=== PATIENT | male | born 1965 | race Caucasian/White ===

== ENCOUNTER → 2016-09-20 | Outpatient (CLI) | payer BC ==
[2016-09-20 10:41] LABS: ALT 62 U/L (21-72); AST 38 U/L (17-59); Alkaline Phosphatase 54 U/L (38-126); Anion Gap 12 mmol/L; Blood Urea Nitrogen 25 mg/dL (9-20); Calcium 9.7 mg/dL (8.4-10.2); Carbon Dioxide 28 mmol/L (22-30); Chloride 102 mmol/L (98-107); Cholesterol 170 mg/dL (<200); Glucose 168 mg/dL (74-99); HDL Cholesterol 32 mg/dL (40-60); Non-African American GFR(MDRD) >60 (>60 ml/min/1.73 sqM); Potassium 4.7 mmol/L (3.5-5.1); Sodium 142 mmol/L (137-145); Total Bilirubin 0.7 mg/dL (0.2-1.3); Total Protein 7.6 g/dL (6.3-8.2); Triglycerides 385 mg/dL (<150)
[2016-09-20 11:30] LABS: Vitamin B12 610 pg/mL (239-931)
== END | disposition home or self-care (01) ==
LOC: LABWHC1 07:57
PROVIDERS: ATTEND Internal Medicine Endocrinology, Diabetes & Metabolism
DX: E11.65 Type 2 diabetes mellitus with hyperglycemia (principal)
CPT/HCPCS: 36415; 80053; 80061; 82043; 82607

== ENCOUNTER → 2017-01-23 | Outpatient (CLI) | payer BC ==
[2017-01-23 07:58] LABS: CH 31.1; CHCM 34.4; HDW 2.92; HGB 17.2 gm/dL (13.0-17.5); MCH 30.7 pg (25.0-35.0); MCHC 33.8 g/dL (31.0-37.0); MCV 90.8 fL (80.0-100.0); Mean Platelet Volume 6.3; RBC 5.62 m/uL (4.30-5.90); WBC 7.2 k/uL (3.8-10.6)
[2017-01-23 13:12] LABS: ALT 67 U/L (21-72); AST 38 U/L (17-59); Alkaline Phosphatase 56 U/L (38-126); Anion Gap 11 mmol/L; Blood Urea Nitrogen 23 mg/dL (9-20); Calcium 10.4 mg/dL (8.4-10.2); Carbon Dioxide 26 mmol/L (22-30); Chloride 105 mmol/L (98-107); Cholesterol 149 mg/dL (<200); Glucose 174 mg/dL (74-99); HDL Cholesterol 28 mg/dL (40-60); Non-African American GFR(MDRD) >60 (>60 ml/min/1.73 sqM); Potassium 5.1 mmol/L (3.5-5.1); Sodium 142 mmol/L (137-145); Total Bilirubin 0.6 mg/dL (0.2-1.3); Total Protein 7.4 g/dL (6.3-8.2); Triglycerides 215 mg/dL (<150)
[2017-01-23 13:36] LABS: Prostate Specific Antigen 1.12 ng/mL (0.00-4.00)
== END | disposition home or self-care (01) ==
LOC: LABWHC1 07:38
PROVIDERS: ATTEND Internal Medicine Endocrinology, Diabetes & Metabolism
DX: E11.65 Type 2 diabetes mellitus with hyperglycemia (principal); E29.1 Testicular hypofunction
CPT/HCPCS: 36415; 80053; 80061; 82043; 84153; 84403; 85027

== ENCOUNTER → 2017-05-09 | Outpatient (CLI) | payer BC ==
[2017-05-09 07:31] LABS: ALT 57 U/L (21-72); AST 37 U/L (17-59); Alkaline Phosphatase 52 U/L (38-126); Anion Gap 12 mmol/L; Blood Urea Nitrogen 26 mg/dL (9-20); Calcium 10.3 mg/dL (8.4-10.2); Carbon Dioxide 26 mmol/L (22-30); Chloride 102 mmol/L (98-107); Cholesterol 154 mg/dL (<200); Glucose 157 mg/dL (74-99); HDL Cholesterol 26 mg/dL (40-60); Non-African American GFR(MDRD) >60 (>60 ml/min/1.73 sqM); Potassium 4.7 mmol/L (3.5-5.1); Sodium 140 mmol/L (137-145); Total Bilirubin 0.6 mg/dL (0.2-1.3); Total Protein 7.3 g/dL (6.3-8.2)
[2017-05-09 15:59] LABS: Urine Creatinine 144.1 mg/dL
== END | disposition home or self-care (01) ==
LOC: LABWHC1 06:35
PROVIDERS: ATTEND Internal Medicine Endocrinology, Diabetes & Metabolism
DX: E11.65 Type 2 diabetes mellitus with hyperglycemia (principal)
CPT/HCPCS: 36415; 80053; 80061; 82043; 82570

== ENCOUNTER → 2017-09-06 | Outpatient (CLI) | payer BC ==
[2017-09-06 07:34] LABS: HCT 48.9 % (39.0-53.0); HGB 16.8 gm/dL (13.0-17.5); MCH 30.7 pg (25.0-35.0); MCHC 34.3 g/dL (31.0-37.0); MCV 89.4 fL (80.0-100.0); Mean Platelet Volume 6.9; Platelet Count 270 k/uL (150-450); RBC 5.47 m/uL (4.30-5.90); RDW 15.6 % (11.5-15.5); WBC 7.2 k/uL (3.8-10.6)
== END | disposition home or self-care (01) ==
LOC: LABWHC1 07:00
PROVIDERS: ATTEND Internal Medicine Endocrinology, Diabetes & Metabolism
DX: E29.1 Testicular hypofunction (principal)
CPT/HCPCS: 36415; 84403; 85027

== ENCOUNTER → 2018-01-19 | Outpatient (CLI) | payer BC ==
[2018-01-19 07:44] LABS: ALT 52 U/L (21-72); AST 35 U/L (17-59); Albumin 4.1 g/dL (3.5-5.0); Alkaline Phosphatase 52 U/L (38-126); Anion Gap 11 mmol/L; Blood Urea Nitrogen 23 mg/dL (9-20); Calcium 10.1 mg/dL (8.4-10.2); Carbon Dioxide 28 mmol/L (22-30); Chloride 101 mmol/L (98-107); Cholesterol 166 mg/dL (<200); Glucose 133 mg/dL (74-99); HDL Cholesterol 24 mg/dL (40-60); Potassium 4.8 mmol/L (3.5-5.1); Sodium 140 mmol/L (137-145); Total Bilirubin 0.4 mg/dL (0.2-1.3); Total Protein 6.9 g/dL (6.3-8.2); Triglycerides 455 mg/dL (<150)
[2018-01-19 15:28] LABS: Hemoglobin A1C 7.8 % (4.0-6.0)
== END | disposition home or self-care (01) ==
LOC: LABWHC1 06:40
PROVIDERS: ATTEND Internal Medicine Endocrinology, Diabetes & Metabolism
DX: E11.65 Type 2 diabetes mellitus with hyperglycemia (principal)
CPT/HCPCS: 36415; 80053; 80061; 82043; 82570; 82607; 83036

== ENCOUNTER → 2018-06-18 | Outpatient (CLI) | payer BC ==
[2018-06-18 11:27] LABS: ALT 57 U/L (10-49); AST 45 U/L (14-35); Alkaline Phosphatase 50 U/L (41-126); Carbon Dioxide 30.5 mmol/L (21.6-31.8); Chloride 101 mmol/L (96-109); Cholesterol 192 mg/dL (0-200); Globulin 2.3 g/dL (2.1-3.7); Glucose 168 mg/dL (70-110); Potassium 4.7 mmol/L (3.5-5.5); Sodium 139 mmol/L (135-145); Total Bilirubin 0.6 mg/dL (0.2-1.2); Total Protein 6.9 g/dL (6.2-8.2)
[2018-06-18 13:05] LABS: Hemoglobin A1C 8.6 % (4.0-6.0)
== END | disposition home or self-care (01) ==
LOC: LABWHC1 06:37
PROVIDERS: ATTEND Internal Medicine Endocrinology, Diabetes & Metabolism
DX: E11.65 Type 2 diabetes mellitus with hyperglycemia (principal)
CPT/HCPCS: 36415; 80053; 80061; 82043; 82570; 83036; 83721

== ENCOUNTER → 2018-08-26 | Outpatient (CLI) | payer BC ==
--- NOTE | 2018-08-26 18:10 | PN ---
PROGRESS NOTE DATE OF SERVICE: 08/26/2018 This patient is a 53-year-old gentleman who has been followed in the sleep center for treatment of obstructive sleep apnea-hypopnea syndrome. The patient successfully continues to use his CPAP equipment, using a nasal mask. He feels better while using his machine. [place] Sleepiness Scale today is 4, which is normal. I checked his CPAP unit. CPAP pressure is 9 cm of water. The patient has borderline compliance. Leak is 24 L/minute, which is acceptable. Apnea-hypopnea index reading is 0.9, which is absolutely normal. MEDICATIONS: 1. NovoLog. 2. Metformin. 3. Losartan. 4. Gemfibrozil. 5. Pravastatin. 6. Omeprazole. 7. Aspirin. 8. Glucosamine. 9. Vitamins. 10.Testosterone cream. PHYSICAL EXAMINATION: GENERAL: A pleasant patient in no distress. VITAL SIGNS: BP 138/86, HR 89, RR 16, height 6 feet, weight 212.2, body mass index 28.7. Patient's weight has increased by 5 pounds compared to his previous visit. Temperature 98.2, oxygen saturation at room air 96%. HEENT: PERRLA, EOMI. Evaluation of oropharynx showed tongue protrudes midline. Mallampati 3-4. NECK: Supple. No JVD. Thyroid is not palpable. LUNGS: Clear to percussion and to auscultation. Good air exchange. No wheezing or rhonchi. HEART: S1, S2 regular. No murmurs, gallops or rubs. ABDOMEN: Soft and nontender. Bowel sounds are present. No organomegaly. EXTREMITIES: No clubbing or cyanosis. AMMONIA DISTILLER: Awake, alert, and oriented X3. Cranial nerves 2 to 7 intact. There is no fasciculation or atrophy. noted. No focal deficits observed. IMPRESSION: 1. Severe obstructive sleep apnea-hypopnea syndrome, fully under control with CPAP at 9 cm of water. Patient benefitting from treatment. 2. Hypertension. 3. Diabetes mellitus. 4. Hyperlipidemia. 5. Acid reflux. 6. Low testosterone level. 7. History of acute leukemia, status post bone marrow transplant. 8. Status post right knee surgery. 9. Status post appendectomy. PLAN: 1. Patient will continue to use CPAP equipment every night for the whole night. Prescriptions for all necessary CPAP supplies including mask, tube, filters. 2. Watching and losing weight. 3. Sleep hygiene with regular time in bed for at least 8 hours. 4. No driving if feeling any sleepiness. 5. Follow-up visit in one year, or earlier if patient has any problems. Thank you very much for allowing me to participate in the management of your patient. Sincerely, Joni Hong MD, PhD, FAASM Diplomat of [place] [employer] [place] [employer] Clinical Education Manager of [facility] [place] MMODL / CRISTINAN: [id number] /
== END ==
LOC: SLEEP 16:39
PROVIDERS: ATTEND Internal Medicine
DX: G47.33 Obstructive sleep apnea (adult) (pediatric) (principal); I10 Essential (primary) hypertension; E11.9 Type 2 diabetes mellitus without complications; E78.5 Hyperlipidemia, unspecified; K21.9 Gastro-esophageal reflux disease without esophagitis; E29.1 Testicular hypofunction; C95.00 Acute leukemia of unspecified cell type not having achieved remission; Z90.89 Acquired absence of other organs; Z98.890 Other specified postprocedural states; Z94.81 Bone marrow transplant status; Z99.89 Dependence on other enabling machines and devices; Z79.84 Long term (current) use of oral hypoglycemic drugs; Z79.82 Long term (current) use of aspirin; Z79.899 Other long term (current) drug therapy

== ENCOUNTER → 2018-10-08 | Outpatient (CLI) | payer BC ==
[2018-10-08 07:08] LABS: HGB 16.6 gm/dL (13.0-17.5); MCH 31.5 pg (25.0-35.0); MCHC 33.1 g/dL (31.0-37.0); MCV 95.2 fL (80.0-100.0); Mean Platelet Volume 6.4; Platelet Count 269 k/uL (150-450); RBC 5.26 m/uL (4.30-5.90); RDW 14.9 % (11.5-15.5); WBC 6.4 k/uL (3.8-10.6)
[2018-10-08 12:06] LABS: Hemoglobin A1C 8.5 % (4.0-6.0)
[2018-10-08 13:16] LABS: ALT 64 U/L (10-49); AST 53 U/L (14-35); Albumin/Globulin Ratio 1.87 (1.60-3.17); Alkaline Phosphatase 51 U/L (41-126); Carbon Dioxide 25.6 mmol/L (21.6-31.8); Chloride 101 mmol/L (96-109); Cholesterol 172 mg/dL (0-200); Globulin 2.3 g/dL (1.6-3.3); Glucose 157 mg/dL (70-110); Potassium 4.6 mmol/L (3.5-5.5); Sodium 137 mmol/L (135-145); Total Bilirubin 0.5 mg/dL (0.2-1.2); Total Protein 6.6 g/dL (6.2-8.2)
== END | disposition home or self-care (01) ==
LOC: LABWHC1 06:33
PROVIDERS: ATTEND Internal Medicine Endocrinology, Diabetes & Metabolism
DX: E11.65 Type 2 diabetes mellitus with hyperglycemia (principal)
CPT/HCPCS: 36415; 80053; 80061; 82043; 82570; 83036; 83721; 84153; 84403; 84443; 85027

== ENCOUNTER → 2019-01-29 | Outpatient (CLI) | payer BC ==
[2019-01-29 07:39] LABS: HCT 52.3 % (39.0-53.0); MCH 30.4 pg (25.0-35.0); MCHC 32.5 g/dL (31.0-37.0); MCV 93.5 fL (80.0-100.0); Mean Platelet Volume 6.1; Platelet Count 292 k/uL (150-450); RBC 5.59 m/uL (4.30-5.90); RDW 15.1 % (11.5-15.5); WBC 7.2 k/uL (3.8-10.6)
[2019-01-29 11:02] LABS: African American GFR (CKD) 65.1 (60.0-200.0); Albumin 4.5 g/dL (3.80-4.90); Albumin/Globulin Ratio 2.05 (1.60-3.17); Anion Gap 6.5 mmol/L (4.00-12.00); BUN/Creat Ratio 15.71 Ratio (12.00-20.00); Calcium 10.3 mg/dL (8.7-10.3); Carbon Dioxide 27.5 mmol/L (21.6-31.8); Globulin 2.2 g/dL (1.6-3.3); Total Bilirubin 0.5 mg/dL (0.2-1.2); Total Protein 6.7 g/dL (6.2-8.2)
[2019-01-29 17:07] LABS: Hemoglobin A1C 8.8 % (4.0-6.0)
== END | disposition home or self-care (01) ==
LOC: LABWHC1 06:47
PROVIDERS: ATTEND Internal Medicine Endocrinology, Diabetes & Metabolism
DX: E11.65 Type 2 diabetes mellitus with hyperglycemia (principal); Z12.5 Encounter for screening for malignant neoplasm of prostate
CPT/HCPCS: 36415; 80053; 80061; 82043; 82570; 83036; 84153; 84403; 84443; 85027

== ENCOUNTER → 2019-09-20 | Outpatient (CLI) | payer BC ==
[2019-09-20 08:04] LABS: HCT 53.6 % (39.0-53.0); HGB 17.2 gm/dL (13.0-17.5); MCH 29.8 pg (25.0-35.0); Mean Platelet Volume 6.8; Platelet Count 303 k/uL (150-450); RBC 5.76 m/uL (4.30-5.90); RDW 14.4 % (11.5-15.5); WBC 8.3 k/uL (3.8-10.6)
[2019-09-20 12:13] LABS: Urine Creatinine 100.8 mg/dL
[2019-09-20 13:41] LABS: Hemoglobin A1C 8.5 % (4.0-6.0)
[2019-09-20 17:05] LABS: African American GFR (CKD) 64.6 (60.0-200.0); Albumin 4.6 g/dL (3.80-4.90); Albumin/Globulin Ratio 2.09 (1.60-3.17); Anion Gap 6.9 mmol/L (4.00-12.00); BUN/Creat Ratio 22.14 Ratio (12.00-20.00); Calcium 10.9 mg/dL (8.7-10.3); Carbon Dioxide 27.1 mmol/L (21.6-31.8); Chol/HDL Ratio 5.16; Globulin 2.2 g/dL (1.6-3.3); LDL Cholesterol,Calculated 65.6 mg/dL (0.0-131.0); Non-African American GFR(CKD) 55.8 (60.0-200.0); Potassium 5.2 mmol/L (3.5-5.5); Total Bilirubin 0.6 mg/dL (0.3-1.2); Total Protein 6.8 g/dL (6.2-8.2); VLDL Calculation 63.4 mg/dL (5.00-40.00)
== END | disposition home or self-care (01) ==
LOC: LABWHC1 07:03
PROVIDERS: ATTEND Internal Medicine Endocrinology, Diabetes & Metabolism
DX: E10.65 Type 1 diabetes mellitus with hyperglycemia (principal); E29.1 Testicular hypofunction
CPT/HCPCS: 36415; 80053; 80061; 82043; 82570; 83036; 84153; 84403; 84443; 85027

== ENCOUNTER → 2020-01-27 | Outpatient (CLI) | payer BC ==
[2020-01-27 08:09] LABS: MCH 31.7 pg (25.0-35.0); MCHC 33.4 g/dL (31.0-37.0); MCV 95.1 fL (80.0-100.0); Mean Platelet Volume 6.5; Platelet Count 306 k/uL (150-450); RBC 5.36 m/uL (4.30-5.90); RDW 14.4 % (11.5-15.5); WBC 7.3 k/uL (3.8-10.6)
[2020-01-27 16:43] LABS: African American GFR (CKD) 64.6 (60.0-200.0); Albumin 4.5 g/dL (3.80-4.90); Albumin/Globulin Ratio 1.88 (1.60-3.17); Anion Gap 7.5 mmol/L (4.00-12.00); BUN/Creat Ratio 19.29 Ratio (12.00-20.00); Calcium 10.3 mg/dL (8.7-10.3); Carbon Dioxide 27.5 mmol/L (21.6-31.8); Chol/HDL Ratio 5.34; Globulin 2.4 g/dL (1.6-3.3); Non-African American GFR(CKD) 55.8 (60.0-200.0); Potassium 4.8 mmol/L (3.5-5.5); Total Bilirubin 0.7 mg/dL (0.3-1.2); Total Protein 6.9 g/dL (6.2-8.2)
[2020-01-27 17:36] LABS: Hemoglobin A1C 7.8 % (4.0-6.0)
[2020-01-27 17:57] LABS: Urine Creatinine 96.5 mg/dL
== END | disposition home or self-care (01) ==
LOC: LABWHC1 07:07
PROVIDERS: ATTEND Internal Medicine Endocrinology, Diabetes & Metabolism
DX: E10.65 Type 1 diabetes mellitus with hyperglycemia (principal); E29.1 Testicular hypofunction
CPT/HCPCS: 36415; 80053; 80061; 82043; 82570; 83036; 84403; 84443; 85027

== ENCOUNTER → 2020-05-18 | Outpatient (CLI) | payer BC ==
--- NOTE | 2020-05-19 07:29 | SFUN ---
SLEEP CENTER FOLLOW UP NOTE DATE OF SERVICE: 05/18/2020 This 55-year-old gentleman who has been followed in Sleep Center for treatment of obstructive sleep apnea-hypopnea syndrome. The patient continued to use CPAP equipment, but unfortunately not every night. He explained that when he is using equipment he sleeps better and feels better on the following day. No problems with the machine. [place] Sleepiness Scale is 7. I checked his CPAP unit. CPAP pressure is 9 cm of water. For the last month, he used it 14 night with average usage 5.6 hours per night. Leak is slightly increased 26 L/minute, but apnea-hypopnea index is perfectly normal 1.0. MEDICATIONS: Aspirin 81 mg once daily, losartan 100 mg once daily, gemfibrozil 600 mg twice daily, metformin 500 mg 3 times daily, pravastatin 40 mg once daily, NovoLog, testosterone cream. PHYSICAL EXAMINATION: GENERAL: Patient in no distress. VITAL SIGNS: BP 107/71, HR 90, RR 15, height 6 feet 0 inches, weight 204.4, temperature 98.2, oxygen saturation at room air 97%. HEENT: PERRLA, EOMI. Oropharynx low position of soft palate, Mallampati 3-4. NECK: Supple, no JVD. Thyroid is not palpable. LUNGS: Clear to percussion and to auscultation. Good air exchange. No wheezing or rhonchi. HEART: S1, S2 regular. No murmurs, gallops, or rubs. ABDOMEN: Soft and nontender. Bowel sounds are present. No organomegaly appreciated. EXTREMITIES: No clubbing or cyanosis. DIRECTOR OF GUIDANCE IN PUBLIC [employer]CHOOLS: Awake, alert, and oriented X3. Cranial nerves 2 to 7 intact. There is no fasciculation or atrophy. noted. No focal deficits observed. IMPRESSION: 1. Severe obstructive sleep apnea-hypopnea syndrome, normal respiration on CPAP and benefitting from treatment. 2. Hypertension. 3. Diabetes mellitus. 4. Hyperlipidemia. 5. Acid reflux. 6. Low testosterone level. 7. History of acute leukemia, status post bone marrow transplant. 8. Status post right knee surgery. 9. Status post appendectomy. PLAN: 1. Patient will continue to use PAP equipment every night for the whole night. 2. Sleep hygiene with regular time in bed for at least 7-1/2 to 8 hours. 3. Precautions related to driving. No driving if feeling sleepiness. 4. I will maintain all necessary prescription for PAP supplies including mask, tube, filters. 5. Watching weight. 6. No driving if feeling sleepiness. 7. Follow-up visit in 6 months or earlier if patient has any problems. I again discussed with the patient in details necessity to use CPAP treatment every night for the whole night. I discussed the possibility of complications if he will not use CPAP therapy. Thank you very much for allowing me to participate in management of your patient. Sincerely, Joni Hong MD, PhD, FAASM Diplomat of [place] [employer] [place] [employer] Trailer Tank Truck Driver of [facility] [place] MMODL / IJN: [id number] /
== END | disposition home or self-care (01) ==
LOC: SLEEP 15:46
PROVIDERS: ATTEND Internal Medicine
DX: G47.33 Obstructive sleep apnea (adult) (pediatric) (principal); I10 Essential (primary) hypertension; E11.9 Type 2 diabetes mellitus without complications; E78.5 Hyperlipidemia, unspecified; K21.9 Gastro-esophageal reflux disease without esophagitis; R86.1 Abnormal level of hormones in specimens from male genital organs; Z85.6 Personal history of leukemia

== ENCOUNTER → 2020-06-22 | Outpatient (CLI) | payer BC ==
[2020-06-22 17:02] LABS: HCT 51.5 % (39.0-53.0); HGB 17.1 gm/dL (13.0-17.5); MCH 31.2 pg (25.0-35.0); MCHC 33.2 g/dL (31.0-37.0); Mean Platelet Volume 6.5; Platelet Count 272 k/uL (150-450); RBC 5.48 m/uL (4.30-5.90); RDW 14.9 % (11.5-15.5); WBC 9.2 k/uL (3.8-10.6)
[2020-06-23 01:30] LABS: Prostate Specific Antigen 1.8 ng/mL (0.0-3.5)
== END | disposition home or self-care (01) ==
LOC: LABWHC1 15:43
PROVIDERS: ATTEND Internal Medicine Endocrinology, Diabetes & Metabolism
DX: E29.1 Testicular hypofunction (principal)
CPT/HCPCS: 36415; 84153; 84403; 85027

== ENCOUNTER → 2020-09-15 | Outpatient (CLI) | payer BC ==
[2020-09-15 07:55] LABS: HGB 16.4 gm/dL (13.0-17.5); MCH 30.5 pg (25.0-35.0); MCHC 32.7 g/dL (31.0-37.0); MCV 93.2 fL (80.0-100.0); Mean Platelet Volume 6.4; Platelet Count 266 k/uL (150-450); RBC 5.37 m/uL (4.30-5.90); RDW 14.9 % (11.5-15.5)
[2020-09-15 11:26] LABS: African American GFR (CKD) 64.2 (60.0-200.0); Albumin 4.7 g/dL (3.80-4.90); Albumin/Globulin Ratio 2.04 (1.60-3.17); Anion Gap 9.9 mmol/L (4.00-12.00); BUN/Creat Ratio 20.71 Ratio (12.00-20.00); Calcium 10.3 mg/dL (8.7-10.3); Carbon Dioxide 27.1 mmol/L (21.6-31.8); Chol/HDL Ratio 5.03; Globulin 2.3 g/dL (1.6-3.3); Non-African American GFR(CKD) 55.4 (60.0-200.0); Potassium 4.9 mmol/L (3.5-5.5); Prostate Specific Antigen 0.9 ng/mL (0.0-3.5); Total Bilirubin 0.4 mg/dL (0.3-1.2)
[2020-09-15 11:40] LABS: Urine Creatinine 98.7 mg/dL
[2020-09-15 13:11] LABS: Hemoglobin A1C 8.8 % (4.0-6.0)
== END | disposition home or self-care (01) ==
LOC: LABWHC1 07:01
PROVIDERS: ATTEND Internal Medicine Endocrinology, Diabetes & Metabolism
DX: E11.65 Type 2 diabetes mellitus with hyperglycemia (principal); E29.1 Testicular hypofunction
CPT/HCPCS: 36415; 80053; 80061; 82043; 82570; 83036; 83721; 84153; 84403; 84443; 85027

== ENCOUNTER → 2020-12-07 | Outpatient (CLI) | payer BC ==
--- NOTE | 2020-12-07 23:16 | SFUN ---
SLEEP CENTER FOLLOW UP NOTE DATE OF SERVICE: 12/07/2020 This 55-year-old gentleman has been followed in Sleep Center for treatment of obstructive sleep apnea-hypopnea syndrome. Recently the patient developed problems with his machine. The machine become noisy. He checked with his [employer] company and they told him that possibly something was wrong with the motor, so the machine needs to be replaced. I checked the CPAP unit. The patient used it for 12/ nights for the last month, again because the machine is noisy. Usage average is 4.4 hours per night. Leak is 25 L/minute, which is borderline, but apnea-hypopnea index is totally normal at 1.4. CPAP pressure is 9 cm of water. The patient using a DreamWear [id number] medium-sized mask. [place] Sleepiness Scale today is 4. MEDICATIONS: 1. Aspirin 81 mg once a day. 2. Losartan 100 mg once a day. 3. Gemfibrozil 600 mg twice a day. 4. Metformin 500 mg 3 times a day. 5. Pravastatin 40 mg once a day. 6. Testosterone topical solution once a day. 7. Allopurinol 100 mg once a day. 8. Colchicine 0.6 mg as needed for gout once a day. 9. Insulin NovoLog for diabetes. 10.Some supplements, including multivitamins, fiber capsules. PHYSICAL EXAMINATION: GENERAL: A pleasant patient in no distress. VITAL SIGNS: BP 127/67, HR 98, RR 14, height 6 feet 1/2 inch, weight 209 pounds, BMI 27.9, temperature 99.8, oxygen saturation at room air 97%. HEENT: PERRLA, EOMI. Evaluation of oropharynx showed tongue protrudes midline. Extremely low position of soft palate. Mallampati III to IV. NECK: Supple. No JVD. Thyroid is not palpable. LUNGS: Clear to percussion and to auscultation. Good air exchange. No wheezing or rhonchi. HEART: S1, S2 regular. No murmurs, gallops or rubs. ABDOMEN: Soft and nontender. Bowel sounds are present. No organomegaly appreciated. EXTREMITIES: No clubbing or cyanosis. DRAW FIRE OPERATOR: Awake, alert, and oriented X3. Cranial nerves 2 to 7 intact. There is no fasciculation or atrophy. noted. No focal deficits observed. IMPRESSION: 1. Obstructive sleep apnea-hypopnea syndrome in severe range. The patient's respiration is normal on CPAP. Patient has difficulties using the machine because the machine is noisy. 2. Hypertension. 3. Diabetes mellitus. 4. Hyperlipidemia. 5. Acid reflux. 6. Low testosterone level. 7. History of acute leukemia, status post bone marrow transplant. 8. Status post right knee surgery. 9. Status post appendectomy. PLAN: 1. Prescription for new CPAP unit with a pressure of 9 cm of water, heated tube, heated humidifier, DreamWear medium-sized [id number] mask. 2. Patient will continue to use PAP equipment every night for the whole night. 3. Sleep hygiene with regular time in bed for at least 7-1/2 to 8 hours. 4. Precautions related to driving. No driving if feeling sleepiness. 5. I will maintain all necessary prescription for PAP supplies including mask, tube, filters. 6. Watching weight. 7. Follow-up visit in 6 months or earlier if patient has any problems. Thank you very much for allowing me to participate in the management of your patient. Sincerely, Joni Hong MD, PhD, FAASM Diplomat of [place] [employer] [place] [employer] House Superintendent of [facility] [place] MMODL / CRISTINAN: [id number] /
== END | disposition home or self-care (01) ==

== ENCOUNTER → 2021-04-06 | Outpatient (CLI) | payer BC ==
[2021-04-06 11:13] LABS: HCT 50.2 % (39.6-50.0); HGB 16.4 g/dL (13.0-17.0); MCH 31.5 pg (27.0-32.0); MCHC 32.7 g/dL (32.0-37.0); MCV 96.4 fL (80.0-97.0); Mean Platelet Volume 8.9 fL (9.5-12.2); Platelet Count 308 X 10*3/uL (140-440); RBC 5.21 X 10*6/uL (4.40-5.60); RDW 14.5 % (11.5-14.5); WBC 7.82 X 10*3/uL (4.50-10.00)
[2021-04-06 11:29] LABS: African American GFR (CKD) 54.2 (60.0-200.0); Albumin 4.6 g/dL (3.80-4.90); Albumin/Globulin Ratio 1.84 (1.60-3.17); Anion Gap 8.3 mmol/L (4.00-12.00); BUN/Creat Ratio 18.75 Ratio (12.00-20.00); Calcium 10.2 mg/dL (8.7-10.3); Carbon Dioxide 28.7 mmol/L (21.6-31.8); Chol/HDL Ratio 5.46; Globulin 2.5 g/dL (1.6-3.3); LDL Cholesterol,Calculated 57.8 mg/dL (0.0-131.0); Non-African American GFR(CKD) 46.8 (60.0-200.0); Potassium 4.9 mmol/L (3.5-5.5); Total Bilirubin 0.6 mg/dL (0.3-1.2); Total Protein 7.1 g/dL (6.2-8.2); VLDL Calculation 67.2 mg/dL (5.00-40.00)
[2021-04-06 11:37] LABS: Prostate Specific Antigen 0.6 ng/mL (0.0-3.5)
[2021-04-06 16:48] LABS: Urine Creatinine 99.6 mg/dL
[2021-04-06 16:51] LABS: Hemoglobin A1C 8.4 % (4.0-6.0)
== END | disposition home or self-care (01) ==
LOC: LABWHC1 07:05
PROVIDERS: ATTEND Internal Medicine Endocrinology, Diabetes & Metabolism
DX: E29.1 Testicular hypofunction (principal); E11.65 Type 2 diabetes mellitus with hyperglycemia
CPT/HCPCS: 36415; 80053; 80061; 82043; 82570; 83036; 84153; 84403; 84443; 85027

== ENCOUNTER → 2021-12-28 | Outpatient (CLI) | payer BC ==
[2021-12-28 11:30] LABS: ALT 38 U/L (10-49); AST 33 U/L (14-35); African American GFR (CKD) 54.2 (60.0-200.0); Albumin 4.1 g/dL (3.8-4.9); Albumin/Globulin Ratio 1.37 (1.60-3.17); Alkaline Phosphatase 44 U/L (41-126); BUN/Creat Ratio 16.38 Ratio (12.00-20.00); Blood Urea Nitrogen 26.2 mg/dL (9.0-27.0); Calcium 9.9 mg/dL (8.7-10.3); Carbon Dioxide 22.4 mmol/L (20.0-27.5); Chloride 103 mmol/L (96-109); Glucose 120 mg/dL (70-110); LDL Cholesterol,Calculated 65.4 mg/dL (0.0-131.0); Non-African American GFR(CKD) 46.8 (60.0-200.0); Potassium 4.3 mmol/L (3.5-5.5); Sodium 137 mmol/L (135-145); Total Protein 7.1 g/dL (6.2-8.2)
== END | disposition home or self-care (01) ==
LOC: LABWHC1 07:04
PROVIDERS: ATTEND Internal Medicine Endocrinology, Diabetes & Metabolism
DX: Z12.5 Encounter for screening for malignant neoplasm of prostate (principal); Z13.220 Encounter for screening for lipoid disorders; E11.65 Type 2 diabetes mellitus with hyperglycemia
CPT/HCPCS: 36415; 80053; 80061; 82043; 82570; 84153

== ENCOUNTER → 2022-04-12 | Outpatient (CLI) | payer BC ==
[2022-04-12 11:31] LABS: HCT 51.4 % (39.6-50.0); HGB 17.2 g/dL (13.0-17.0); MCH 30.3 pg (27.0-32.0); MCHC 33.5 g/dL (32.0-37.0); MCV 90.5 fL (80.0-97.0); Mean Platelet Volume 8.9 fL (9.5-12.2); NRBC Per 100 WBC 0 /100 WBCS (0.0-0.0); Platelet Count 262 X 10*3/uL (140-440); RBC 5.68 X 10*6/uL (4.40-5.60); RDW 15.6 % (11.5-14.5); WBC 7.41 X 10*3/uL (4.50-10.00)
[2022-04-12 11:36] LABS: ALT 43 U/L (10-49); AST 29 U/L (14-35); African American GFR (CKD) 58.2 (60.0-200.0); Albumin 4.5 g/dL (3.8-4.9); Albumin/Globulin Ratio 1.67 (1.60-3.17); Alkaline Phosphatase 49 U/L (41-126); Blood Urea Nitrogen 24.9 mg/dL (9.0-27.0); Calcium 9.8 mg/dL (8.7-10.3); Carbon Dioxide 23.2 mmol/L (20.0-27.5); Chloride 103 mmol/L (96-109); Globulin 2.7 g/dL (1.6-3.3); Glucose 124 mg/dL (70-110); LDL Cholesterol,Calculated 51.4 mg/dL (0.0-131.0); Non-African American GFR(CKD) 50.2 (60.0-200.0); Potassium 4.9 mmol/L (3.5-5.5); Sodium 138 mmol/L (135-145); Total Protein 7.2 g/dL (6.2-8.2)
== END | disposition home or self-care (01) ==
LOC: LABWHC1 07:26
PROVIDERS: ATTEND Internal Medicine Endocrinology, Diabetes & Metabolism
DX: E29.1 Testicular hypofunction (principal); E11.65 Type 2 diabetes mellitus with hyperglycemia
CPT/HCPCS: 36415; 80053; 80061; 82043; 82570; 83036; 84153; 84403; 84443; 85027

== ENCOUNTER → 2022-11-01 | Outpatient (CLI) | payer BC ==
[2022-11-01 11:12] LABS: ALT 48 U/L (10-49); AST 32 U/L (14-35); African American GFR (CKD) 53.9 (60.0-200.0); Albumin 4.5 g/dL (3.8-4.9); Albumin/Globulin Ratio 1.55 (1.60-3.17); Alkaline Phosphatase 50 U/L (41-126); BUN/Creat Ratio 21.13 Ratio (12.00-20.00); Blood Urea Nitrogen 33.8 mg/dL (9.0-27.0); Calcium 10.2 mg/dL (8.7-10.3); Carbon Dioxide 25.7 mmol/L (20.0-27.5); Chloride 100 mmol/L (96-109); Chol/HDL Ratio 5.84 Ratio; Globulin 2.9 g/dL (1.6-3.3); Glucose 151 mg/dL (70-110); LDL Cholesterol,Calculated 77.9 mg/dL (0.0-131.0); Non-African American GFR(CKD) 46.5 (60.0-200.0); Sodium 137 mmol/L (135-145); Total Protein 7.4 g/dL (6.2-8.2)
== END | disposition home or self-care (01) ==
LOC: LABWHC1 06:58
PROVIDERS: ATTEND Internal Medicine Endocrinology, Diabetes & Metabolism
DX: E11.65 Type 2 diabetes mellitus with hyperglycemia (principal)
CPT/HCPCS: 36415; 80053; 80061; 82043; 82570; 83036; 84443

== ENCOUNTER → 2023-08-15 | Outpatient (CLI) | payer BC ==
[2023-08-15 11:37] LABS: Appearance,Urine Clear (Clear); Bilirubin,Urine Negative (Negative); Blood,Urine Negative (Negative); Color,Urine Yellow (Yellow); Ketones,Urine Negative (Negative); Nitrite,Urine Negative (Negative); PH, Urine 5.5; Specific Gravity,Urine 1.025 (1.001-1.030); Urobilinogen,Urine 0.2 E.U./DL
[2023-08-15 11:49] LABS: HCT 49.8 % (39.6-50.0); HGB 16.3 g/dL (13.0-17.0); MCH 29.1 pg (27.0-32.0); MCHC 32.7 g/dL (32.0-37.0); MCV 88.9 FL (80.0-97.0); Mean Platelet Volume 8.9 FL (9.5-12.2); NRBC Per 100 WBC 0 X 10*3/uL (0.00-0.01); Platelet Count 250 X 10*3/uL (140-440); RDW 16.1 % (11.5-14.5); WBC 7.47 X 10*3/uL (4.50-10.00)
[2023-08-15 12:22] LABS: ALT 43 U/L (10-49); AST 30 U/L (14-35); Albumin 4.3 g/dL (3.8-4.9); Albumin/Globulin Ratio 1.59 Ratio (1.60-3.17); Alkaline Phosphatase 47 U/L (41-126); Blood Urea Nitrogen 25.2 mg/dL (9.0-27.0); Calcium 10.2 mg/dL (8.7-10.3); Chloride 103 mmol/L (96-109); Globulin 2.7 g/dL (1.6-3.3); Glucose 161 mg/dL (70-110); Sodium 137 mmol/L (135-145); T4, Free (Free Thyroxine) 1.14 ng/dL (0.80-1.80); Total Bilirubin 0.5 mg/dL (0.3-1.2)
== END | disposition home or self-care (01) ==
LOC: LABWHC1 07:14
PROVIDERS: ATTEND Internal Medicine Endocrinology, Diabetes & Metabolism
DX: I10 Essential (primary) hypertension (principal); E11.65 Type 2 diabetes mellitus with hyperglycemia; E29.1 Testicular hypofunction; E03.8 Other specified hypothyroidism
CPT/HCPCS: 36415; 80053; 80061; 81003; 82043; 82306; 82570; 83036; 83721; 84153; 84403; 84439; 84443; 85027; 86141

== ENCOUNTER 2023-11-18 08:14 | Day surgery (SDC) | payer BC ==
[2023-11-18] MEDS: LACTATED RINGERS 1,000 ML IV SCH (08:33)
[2023-11-18 08:53] LABS: Glucose,Whole Blood 182 mg/dL (70-110)
[2023-11-18 09:24] VITALS: TEMP 97
[2023-11-18] MEDS ORDERED: PROPOFOL 10 MG/ML 20 ML VIAL IV ONE (09:31)
--- NOTE | 2023-11-18 09:32 | P.GSHP ---
History of Present Illness H&P Date: 11/18/23 Chief Complaint: Colon cancer screening 58-year-old male here for colonoscopy. Last colonoscopy 10 years ago. That was normal. No bowel complaints. Family history of colon cancer in his brother. Past Medical History Past Medical History: Cancer, Diabetes Mellitus, Hyperlipidemia, Hypertension, Liver Disease, Sleep Apnea/CPAP/BIPAP Additional Past Medical History / Comment(s): uses CPAP, hx. leukemia 1984-bone marrow transplant & then got Hep C-had. tx. & is cured, gout History of Any Multi-Drug Resistant Organisms: None Reported Past Surgical History: Appendectomy Additional Past Surgical History / Comment(s): colonoscopies, jasmina cataracts removed Past Anesthesia/Blood Transfusion Reactions: No Reported Reaction Smoking Status: Never smoker - Past Family History Brother(s) Family Medical History: Cancer Additional Family Medical History / Comment(s): colon Medications and Allergies Home Medications Medication Instructions Recorded Confirmed Type Aspirin 81 mg PO DAILY 11/14/23 11/18/23 History Dapagliflozin Propanediol [Farxiga] 10 mg PO DAILY 11/14/23 11/14/23 History Febuxostat [Uloric] 40 mg PO DAILY 11/14/23 11/18/23 History Insulin Aspart (For Pump) [NovoLOG 0.01 unit SQ-PUMP CONTINUOUS 11/14/23 11/18/23 History (For Pump)] Losartan Potassium [Cozaar] 100 mg PO HS 11/14/23 11/14/23 History Multivitamins, Thera [Multivitamin 1 tab PO DAILY 11/14/23 11/14/23 History (formulary)] Pravastatin Sodium [Pravachol] 40 mg PO HS 11/14/23 11/14/23 History Testosterone Topical TOPICAL DIRECTED 11/14/23 History gemfibroziL [Lopid] 600 mg PO AC-BID 11/14/23 11/14/23 History icosapent ethyL [Vascepa] 1 gm PO DAILY 11/14/23 11/14/23 History metFORMIN HCL [Glucophage] 500 mg PO TID 11/14/23 11/14/23 History Allergies Allergy/AdvReac Type Severity Reaction Status Date / Time No Known Allergies Allergy Verified 11/14/23 09:46 Surgical - Exam Vital Signs Temp Pulse Resp BP Pulse Ox 97.0 F L 100 18 166/80 97 11/18/23 08:39 11/18/23 08:39 11/18/23 08:39 11/18/23 08:39 11/18/23 08:39 Physical exam: General: Well-developed, well-nourished HEENT: Normocephalic, sclerae nonicteric Abdomen: Nontender, nondistended Extremities: No edema Neuro: Alert and oriented Results - Labs Abnormal Lab Results - Last 24 Hours (Table) 11/18/23 Range/Units 08:50 POC Glucose (mg/dL) 182 H (70-110) mg/dL Assessment and Plan (1) Colon cancer screening Narrative/Plan: Will proceed with colonoscopy at this time. Current Visit: Yes Status: Acute Code(s): Z12.11 - ENCOUNTER FOR SCREENING FOR MALIGNANT NEOPLASM OF COLON SNOMED Code(s): 023730720
--- NOTE | 2023-11-18 09:51 | P.PCN ---
Date of Procedure: 11/18/23 Procedure(s) Performed: PREOPERATIVE DIAGNOSIS: Colon cancer screening, family history of colon cancer POSTOPERATIVE DIAGNOSIS: Mild diverticulosis PROCEDURE: Colonoscopy ANESTHESIA: MAC SURGEON: Iker Mares M.D. SPECIMENS: None ENDOSCOPIC PROCEDURE: The patient was placed on the endoscopy table in the left decubitus position. The Olympus colonoscope was inserted into the anus and passed under direct visualization to the base of the cecum. The appendiceal orifice was visualized. From that point the scope was slowly withdrawn inspecting all surfaces carefully. There were no neoplastic inflammatory or polypoid lesions throughout the cecum, ascending, transverse, descending, sigmoid and rectum. There was mild left-sided diverticulosis noted. Digital rectal examination was normal. The patient was taken to the recovery room in stable condition per anesthesia guidelines. RECOMMENDATIONS: Resume diet. Repeat colonoscopy 5 years.
[2023-11-18] MEDS: IV FLUID CONTINUATION 800 ML IV ONE (09:57)
[2023-11-18 10:04] LABS: Glucose,Whole Blood 175 mg/dL (70-110)
[2023-11-18 10:05] VITALS: RESP 16
[2023-11-18 10:43] VITALS: BP 100/64; PULSE 90
== END 2023-11-18 10:35 | disposition home or self-care (01) ==
LOC: ORWHC2ENDO 08:14
PROVIDERS: ATTEND Surgery
DX: Z12.11 Encounter for screening for malignant neoplasm of colon (principal); K57.30 Diverticulosis of large intestine without perforation or abscess without bleeding; Z80.0 Family history of malignant neoplasm of digestive organs; E11.69 Type 2 diabetes mellitus with other specified complication; E78.5 Hyperlipidemia, unspecified; G47.33 Obstructive sleep apnea (adult) (pediatric); I10 Essential (primary) hypertension; Z94.81 Bone marrow transplant status; Z90.49 Acquired absence of other specified parts of digestive tract; Z85.6 Personal history of leukemia; Z86.19 Personal history of other infectious and parasitic diseases; Z79.84 Long term (current) use of oral hypoglycemic drugs; Z79.82 Long term (current) use of aspirin; Z79.899 Other long term (current) drug therapy; Z79.4 Long term (current) use of insulin
CPT/HCPCS: 45378; J2704

== ENCOUNTER → 2023-11-28 | Outpatient (CLI) | payer BC ==
[2023-11-28 11:24] LABS: HCT 51.3 % (39.6-50.0); HGB 16.8 g/dL (13.0-17.0); MCH 29.8 pg (27.0-32.0); MCHC 32.7 g/dL (32.0-37.0); Mean Platelet Volume 8.4 FL (9.5-12.2); NRBC Per 100 WBC 0 X 10*3/uL (0.00-0.01); Platelet Count 289 X 10*3/uL (140-440); RBC 5.64 X 10*6/uL (4.40-5.60)
[2023-11-28 11:59] LABS: ALT 44 U/L (10-49); AST 28 U/L (14-35); Albumin 4.4 g/dL (3.8-4.9); Albumin/Globulin Ratio 1.63 Ratio (1.60-3.17); Alkaline Phosphatase 53 U/L (41-126); BUN/Creat Ratio 16.59 Ratio (12.00-20.00); Blood Urea Nitrogen 28.2 mg/dL (9.0-27.0); Calcium 10.3 mg/dL (8.7-10.3); Carbon Dioxide 24.1 mmol/L (21.6-31.8); Chloride 103 mmol/L (96-109); Chol/HDL Ratio 5.47 Ratio; Globulin 2.7 g/dL (1.6-3.3); Glucose 158 mg/dL (70-110); LDL Cholesterol,Calculated 74.9 mg/dL (0.0-131.0); Potassium 5.3 mmol/L (3.5-5.5); Sodium 139 mmol/L (135-145); Total Bilirubin 0.3 mg/dL (0.3-1.2); Total Protein 7.1 g/dL (6.2-8.2)
[2023-11-28 12:00] LABS: Prostate Specific Antigen 0.72 ng/mL (0.000-4.500)
== END | disposition home or self-care (01) ==
LOC: LABWHC1 06:44
PROVIDERS: ATTEND Internal Medicine Endocrinology, Diabetes & Metabolism
DX: E11.65 Type 2 diabetes mellitus with hyperglycemia (principal); E29.1 Testicular hypofunction
CPT/HCPCS: 36415; 80053; 80061; 82043; 82570; 83036; 84153; 84403; 84443; 85027

== ENCOUNTER → 2024-03-26 | Outpatient (CLI) | payer BC | END | disposition home or self-care (01) | LOC: LABWHC1 06:49 | PROVIDERS: ATTEND Internal Medicine Endocrinology, Diabetes & Metabolism | DX: E11.65 Type 2 diabetes mellitus with hyperglycemia | CPT/HCPCS: 36415; 80053; 80061; 82043; 82570; 83036; 84153; 84403; 84443; 85027 ==